=== PATIENT | male | born 1995 | race Caucasian/White ===

== ENCOUNTER 2021-07-02 07:46 | Emergency (ER) | payer OTHER ==
[~2021-07-02] VITALS: Ht 170.2 cm; Wt 66.7 kg
[2021-07-02 07:46] VITALS: BP_SYST 127
--- NOTE | 2021-07-02 07:46 | NUR ---
BROUGHT IN BY [facility], PLACED IN BED #3 AND TRIAGED. REPORT GIVEN TO KRISTEL
--- NOTE | 2021-07-02 07:50 | NUR ---
ER Dr. Patel at bedside examining patient.
--- NOTE | 2021-07-02 08:15 | NUR ---
Patient does not wish to proceed with medical care recommended by Dr. Patel. Patient given information related to possible complications, up to and including , which could occur as a result of leaving hospital at this time. Patient verbalizes understanding of risks involved leaving against medical advice. Patient has signed AMA form.
== END 2021-07-02 08:15 | disposition left against medical advice (07) ==
LOC: EDBD 07:46 → SED 07:46
DX: R07.89 Other chest pain (principal); F41.9 Anxiety disorder, unspecified; F17.210 Nicotine dependence, cigarettes, uncomplicated; F12.90 Cannabis use, unspecified, uncomplicated
CPT/HCPCS: 99283